=== PATIENT | female | born 1935 | race Caucasian/White ===

== ENCOUNTER 2024-02-25 12:37 | Outpatient (CLI) | payer MEDICARE, BC, SELFPAY ==
--- OUTSIDE RECORDS SUMMARY | 2024-03-02 06:45 | XMS_ITS | Clinical Summary ---
Author Organization [facility] Address [place], [place] [address] Care Team Providers Care Curtain Inspector Name Role Phone Tabitha Nash Primary Care [...] syndrome 10/03/2008 5 Overview (10/03/2008): On premarin Encounters Date Type Department Care Team Description 02/25/2024 Orders Only [facility] Scanner 1 scan: (1-Ord) [facility], XR HIP LT, 02/25/2024 from Last 3 Months Immunizations Name Administration Dates Next Due AMB Influenza, IIV3 (Age >=3 years)(Flu Clinic Only) 02/25/2013 COVID-19 VACCINE SPIKEVAX (M ODERNA 50MCG/0.5ML) 12YO+ PFS 02/24/2023 COVID-19 vaccine (Pfizer-Bio NTech 30mcg/0.3mL) 12YO+ BIVALENT PF, MDV 02/08/2022 COVID-19 vaccine (Pfizer-Bio NTech 30mcg/0.3mL) PF, MDV 02/28/2021,06/24/2020,06/03/2020 Influenza, High-dose [...] st Contact Info) Description 03/09/2024 8:30 AM COMMERCIAL ART INSTRUCTOR Office Visit [facility] [[email or web address] [address] [place] [address] Tabitha Nash PA [address] [place] [address] Health Maintenance Due Date Last Done Comments [...] Procedure Name Priority Date/Time Associated Diagnosis Comments SCAN-RADIOLOGY REPORT 02/25/2024 12:00 AM CDT XR DXA BONE DENSITY 2 SITES AXIAL Routine 05/08/2012 10:37 AM COMMERCIAL ART INSTRUCTOR Osteopenia from Last 3 Months or Most Recently Relevant to Health Maintenance Results * SCAN-RADIOLOGY REPORT (02/25/2024 12:00 AM CDT) Anatomical Region Laterality Modality Other Scanner OTHER * XR DEXA BONE DENSITY 2 SITES (05/08/2012 10:37 AM COMMERCIAL ART INSTRUCTOR) Anatomical Region Laterality Modality Spine, HIPS, HIPL, HIPR Other Narrative 05/12/2012 12:15 PM COMMERCIAL ART INSTRUCTOR Please see scanned document for results of this study. Procedure Note Tamra Alexander - 05/12/2012 Please see scanned document for results of this study. Cyndy Solitario DEXA from Last 3 Months or Most Recently Relevant to Health Maintenance Advance Directives Documents on File Type Date Recorded Patient Oil Field Technician Expl anation Healthcare Directive 09/08/2017 1:50 PM HE ALTHCARE DIRECTIVE, [facility], 08/08/17 Care Teams Curtain Inspector Relationship Specialty Start Date End Date Tabitha Nash [place] [address] [place] [address] PCP - General Physician Director Of Social Media Marketing 05/26/17
== END 2024-02-25 12:38 | disposition home or self-care (01) ==
LOC: AMB 03-02 06:43
PROVIDERS: PCP Physician Assistant Medical; Visit Provider Emergency Medicine Emergency Medical Services
DX: S59.902A Unspecified injury of left elbow, initial encounter (principal); W10.1XXA Fall (on)(from) sidewalk curb, initial encounter; Y92.89 Other specified places as the place of occurrence of the external cause
CPT/HCPCS: A0998

== ENCOUNTER 2024-02-25 13:08 | Emergency (ER) | payer MEDICARE, BC, SELFPAY ==
--- NOTE | 2024-02-25 13:14 | ED_ITS ---
HPI - General Adult General Date Seen: 02/25/24 Chief complaint: Fall/Minor Trauma Stated complaint: fall/left arm pain Time Seen by Provider: 02/25/24 13:14 History of Present Illness HPI narrative: 88 yo F with h/o HTN on Chlorthalidone, hyperlipidemia, history of lumbar stenosis and spondylolisthesis, cystocele, skin cancer, presenting to the ER today for evaluation of left elbow and left hip pain. She was also want with her family today. In the restaurant over the small 6 in step between rooms. 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 She landed on her left side. She did not hit her head or injure her neck. She is not anticoagulated. She landed on her left elbow and left hip. She has significant pain in her left elbow over the olecranon and the medial epicondyle. She actually had scraped her left elbow several days ago in the garden so has a Band-Aid there. She has new abrasions on the dorsum of her elbow from the fall today. She is able to flex and extend her elbow and has normal pronation and supination of her forearm. No numbness or tingling in her hand her arm. No shoulder pain. She also has left hip pain but has been able to bear weight. No numbness or tingling in her left leg. No low back pain. Related Data Home Medications ?Medication ?Instructions ?Recorded ?Confirmed chlorthalidone 25 mg tablet 12.5 mg PO Q OTHER DAY 11/19/21 07/28/23 gabapentin 100 mg capsule mg PO .Bedtime 11/19/21 07/28/23 pravastatin 20 mg tablet mg PO .Bedtime 11/19/21 07/28/23 hydroxyzine HCl 25 mg tablet 25 mg PO 02/18/22 07/28/23 Previous Rx's ?Medication ?Instructions ?Recorded estradiol 0.01% (0.1 mg/gram) 0.5 g vaginal 2XW #42.5 grams 11/19/21 vaginal cream (Estrace) azithromycin 250 mg tablet See Rx Instructions PO .COMPLEX #6 07/28/23 tabs Allergies Allergy/AdvReac Type Severity Reaction Status Date / Time Sulfa drugs Allergy Intermediate GI Issues Uncoded 07/28/23 13:39 [facility] Medical History (Updated 02/25/24 @ 15:19 by Vinny Zarco MD) Cystocele Surgical History (Updated 11/19/21 @ 18:45 by Aby Torres MD) S/P AMBREEN-BSO ?Z90.710 - Acquired absence of both cervix and uterus (ICD-10) ?Z90.722 - Acquired absence of ovaries, bilateral (ICD-10) ?Z90.79 - Acquired absence of other genital organ(s) (ICD-10) Social History (Updated 11/19/21 @ 18:45 by Aby Torres MD) Narrative: She was 04/2021. She wasn't able to take care of her health very much during that time. She was for 60 years when her . She has 3 children. Health care directive on file Health Care Directive completed on 08/08/17. Reviewed for scanning to medical record on 06/17/19 Smoking Status: Never smoker Non-prescribed substance use: denies use Exam Narrative: Exam Narrative: Constitutional: Appears well-developed and well-nourished. Alert. Conversant. Non toxic. She is cold so I got her a blanket. She feels much better with the blanket on. HENT: Head: Atraumatic. No depressed skull fracture, Raccoon Eyes, Pulido's sign, or hemotympanum. Face normal. TMs normal Nose: Nose normal. Mouth/Throat: Oral mucosa is clear and moist. no trismus. Dentures are in place. No signs of oral injury. Eyes: Conjunctivae normal. EOM normal. Pupils equal, round, and reactive to light. No scleral icterus. Neck: Normal range of motion. Neck supple. No tracheal deviation present. Cardiovascular: Normal rate, regular rhythm. No gallop. No friction rub. No murmur heard. Symmetric radial artery pulses Pulmonary/Chest: Effort normal. No stridor. No respiratory distress. No wheezes. No rales. No rhonchi . No tenderness. Musculoskeletal: No C or T or L-spine tenderness. RUE: Normal range of motion. No tenderness. No deformity LUE: Normal range of motion in her shoulder, elbow, forearm, wrist. Clavicle, shoulder, humeral shaft, bicep, tricep are nontender. She is tender over the olecranon and medial epicondyle of the elbow. There is a superficial ecchymosis/superficial abrasion directly over the olecranon on. No bony crepitus. There is a small 1 cm skin tear over the skin of the medial epicondyle. She has a healing abrasion on her lateral elbow (which she scraped in the garden several days ago). Forearm, wrist, hand fingers are nontender. Intact radial, median, ulnar, axillary nerve sensory and motor function. No deformity RLE: Normal range of motion. No edema. No tenderness. No deformity Pelvis is stable. LLE: She is able to bear weight. Normal range of motion her hip, knee, ankle. No deformity or rotation or foreshortening. She is mildly tender over the left hip. No bruising. Neurological: Alert and oriented to person, place, and time. Normal strength. CN II-VII intact. No sensory deficit. GCS eye subscore is 4. GCS verbal subscore is 5. GCS motor subscore is 6. Normal coordination Skin: Skin is warm and dry. No rash noted. No pallor. Normal capillary refill. Psychiatric: Normal mood. Normal affect. Const: Vital Signs, click to edit/add: Vital Signs - 24 hr 02/25/24 13:15 02/25/24 14:10 02/25/24 14:11 Temperature 97.5 F L Pulse Rate 73 68 Pulse Rate [Left P ulse Oximeter] 68 Respiratory Rate 18 Blood Pressure 145/66 H Blood Pressure [Ri ght Upper Arm] 168/78 H Pulse Oximetry 98 96 97 Oxygen Delivery Me thod Room Air Course Vital Signs Vital signs: Initial Vital Signs Temperature 97.5 F L 02/25/24 13:15 Temperature Source Temporal Artery Scan 02/25/24 13:15 Pulse Rate 68 02/25/24 13:15 Pulse Rhythm Regular 02/25/24 13:15 Respiratory Rate 18 02/25/24 13:15 Blood Pressure 168/78 H 02/25/24 13:15 Blood Pressure Mean 108 H 02/25/24 13:15 Blood Pressure Position Sitting 02/25/24 13:15 Pulse Oximetry 98 02/25/24 13:15 Oxygen Delivery Method Room Air 02/25/24 13:15 Vital Signs Temperature 97.5 F L 02/25/24 13:15 Pulse Rate 68 02/25/24 13:15 Respiratory Rate 18 02/25/24 13:15 Blood Pressure 168/78 H 02/25/24 13:15 Pulse Oximetry 98 02/25/24 13:15 Oxygen Delivery Method Room Air 02/25/24 13:15 Temperature 97.5 F L 02/25/24 13:15 Pulse Rate 68 02/25/24 14:11 Respiratory Rate 18 02/25/24 13:15 Blood Pressure 145/66 H 02/25/24 14:10 Pulse Oximetry 97 02/25/24 14:11 Oxygen Delivery Method Room Air 02/25/24 13:15 Medications Administered Medications: Discontinued Medications Generic Name Dose Route Start Last Admin Trade Name Lucienq PRN Reason Stop Dose Admin Acetaminophen 1,000 mg 02/25/24 13:35 02/25/24 13:43 Acetaminophen 500 Mg Tablet PO 02/25/24 13:36 1,000 mg ONCE ONE Administration Diphtheria/Tetanus/Acell Pertussis 0.5 ml 02/25/24 14:14 02/25/24 14:36 Tetanus/Diphth/Pertussis 0.5 Ml Syringe IM 02/25/24 14:15 0.5 ml .ONCE ONE Administration Medical Decision Making MDM Narrative Medical decision making narrative: Very pleasant 88-year-old female presenting to the ER today by private car for evaluation of left elbow pain and left hip pain after she had a accidental ground level fall today. She was out in a restaurant and she missed a step and fell. She did not hit her head and does not have any headache or loss of consciousness. She is not anticoagulated. She is not having any neck pain or signs or symptoms of cervical spine injury. She is not having any sign of torso injury or internal bleeding. Her only complaints are left elbow and left hip pain. In terms of her left elbow clinical exam revealed superficial abrasion and skin tear. She has good range of motion and is neurovascularly intact. X-ray showno acute fracture Left hip: She has tenderness there. No obvious deformity. She is able to bear weight. X-ray of her left hip and pelvis shows no fracture. Wound care for her abrasions performed by nurses here in the ER. These abrasion should heal with topical antibiotics and dressings. No indication for prophylactic oral antibiotics at this time. Tetanus is updated today. Discussed imaging findings with the patient and her family and they are both very pleased nothing is broken. She will manage her pains as if they are bruises. Discussed the potential need for to follow up if any worsening pain with possible MRI of her hip or elbow or CT scan of her pelvis if needed. She will use Tylenol and ice packs if needed for pain. Imaging Data XR left elbow: Attestation: I have reviewed the pertinent imaging results. My impression: No acute fracture or dislocation Radiologist's impression: FINDINGS: No acute fracture or dislocation. No additional osseous abnormality. Soft tissues as imaged are unremarkable. IMPRESSION: No acute osseous abnormality. XR left hip and pelvis: Attestation: I have reviewed the pertinent imaging results. My impression: No acute fracture Radiologist's impression: IMPRESSION: No acute osseous abnormality. Discharge Plan Discharge Clinical Impression: Contusion of elbow, left, Contusion of hip, left Patient Disposition: Home, Self-Care Condition: Stable Instructions: Hip Contusion (ED) Additional Instructions: As we discussed, please try to treat her pain with ice packs 20 minutes every 3- 4 hours if needed and Tylenol as needed. You can also take ibuprofen if needed for aches. Monitor carefully and if you have worsening or severe pain please come back to the ER right away for re-evaluation (if pain gets worse you may need an MRI for further evaluation). It will probably take several days for all the bruising and contusion to heal. Remember, you can come back to the ER anytime if having problems Prescriptions: No Action chlorthalidone 25 mg tablet 12.5 mg PO Q OTHER DAY gabapentin 100 mg capsule PO .Bedtime pravastatin 20 mg tablet PO .Bedtime estradiol [Estrace] 0.01 % (0.1 mg/gram) cream 0.5 g vaginal 2XW Qty: 42.5 3RF Rx Instructions: Use nightly for 2 weeks, then twice weekly. May apply with finger. hydroxyzine HCl 25 mg tablet 25 mg PO Patient Comments: TAKE 0.5 TABLET (12.5 MG) BY MOUTH AT BEDTIME IF NEEDED FOR ANXIETY (SLEEP). (SPLIT TABLETS) azithromycin 250 mg tablet See Rx Instructions PO .COMPLEX Qty: 6 0RF Rx Instructions: For 250 mg dose pack: take 500 mg today (day 1), then 250 mg for 4 days (days 2-5) PO Follow Up/Referrals: Tabitha Nash PA-C [Primary Care Provider] - Stand Alone [facility] Inst[facility]
[2024-02-25 13:15] VITALS: BP 168/78; PULSE 68; RESP 18; TEMP 36.4; O2SAT 98; BMI 21.5
--- NOTE | 2024-02-25 13:35 | CRLHL7_ITS ---
For Patients: As a result of the Cures Act, medical imaging exams and procedure reports are released immediately into your electronic medical record. You may view this report before your referring provider. If you have questions, please contact your health care provider. INDICATION: Fall. Elbow pain. TECHNIQUE: Left elbow three views. COMPARISON: None. FINDINGS: No acute fracture or dislocation. No additional osseous abnormality. Soft tissues as imaged are unremarkable. IMPRESSION: No acute osseous abnormality. Dictated by Benjamin Wyman MD @ 02/25/2024 2:17:37 PM (Electronically Signed)
--- NOTE | 2024-02-25 13:35 | CRLHL7_ITS ---
For Patients: As a result of the Cures Act, medical imaging exams and procedure reports are released immediately into your electronic medical record. You may view this report before your referring provider. If you have questions, please contact your health care provider. INDICATION: Fall. Left hip pain. TECHNIQUE: Pelvis one view. Left hip two views. COMPARISON: None. FINDINGS: Bone demineralization. Degenerative changes of the bilateral hips and visualized lumbar spine. No acute fracture or dislocation. Vascular calcifications. IMPRESSION: No acute osseous abnormality. Dictated by Benjamin Wyman MD @ 02/25/2024 2:20:42 PM (Electronically Signed)
[2024-02-25] MEDS: ACETAMINOPHEN 500 MG TABLET 1000 MG PO (13:43)
--- OUTSIDE RECORDS SUMMARY | 2024-02-25 13:48 | XMS_ITS | Clinical Summary ---
Author Organization [facility] Address [place], [place] [address] Care Team Providers Care Director Of Income Tax Name Role Phone Tabitha Nash Primary Care Provider Allergies Active Allergy Reactions Criticality Noted Date Comments Sulfamethoxazole-Trimethoprim Diarrhea 2008 Sulfa (Sulfonamide Antibiotics) Diarrhea 01/26 Medications Medication Sig Dispensed Refills Start Date End Date Status estradioL (ESTRACE) 0.01% (0.1 mg/g) vaginal cream INSERT 0.5GM VAGINALLY ONCE NIGHTLY FOR 2 WEEKS THE 2 TIMES PER WEEK. MAY APPLY WITH FINGER. 11/19/2021 Active chlorthalidone (HYGROTON) 25 mg tabletIndications:Hyp ertension, unspecified type Take 0.5 Tablets (12.5 mg) by mouth once daily. 45 Tablet 3 02/24/2023 Active gabapentin (NEURONTIN) 100 mg capsuleIndications:Za mbar radicular pain Take 1 Capsule (100 mg) by mouth at bedtime. 90 Capsule 3 02/24/2023 Active hydrOXYzine HCL (ATARAX) 25 mg tabletIndications:Anx iety Take 0.5 Tablets (12.5 mg) by mouth at bedtime if needed for Anxiety (sleep). 45 Tablet 3 02/24/2023 Active pravastatin (PRAVACHOL) 20 mg tabletIndications:Mix ed hyperlipidemia Take 1 Tablet (20 mg) by mouth at bedtime. 90 Tablet 3 02/24/2023 Active Active Problems Problem Noted Date Diagnosed Date Squamous cell carcinoma of lower leg, left 10/03 Overview (10/04/2022): Dr. Derek King, [facility] Phys[facility] Hyperlipidemia, unspecified 02/01/2016 Lumbar neuroforaminal stenosis 02/10/2013 Lumbar radicular pain 02/10/2013 Spondylolisthesis 11/20/2012 HTN (hypertension) 05/18/2012 Cystocele, midline 04/13/2012 Sun-damaged skin 03/26/2011 Actinic keratoses 03/20/2011 Other malignant neoplasm of skin of upper limb, including shoulder 12/19/2010 Osteopenia 10/03/2008 Overview (05/18/2012): Osteopenia 2003, t score spine -1.7, hips -1.1,-1.2 Stable 2012. Recheck 7-10 years. Or if some other significant change. Unspecified glaucoma Resolved Problems Problem Noted Date Diagnosed Date Resolved Date Menopause syndrome 10/03/2008 5 Overview (10/03/2008): On premarin Immunizations Name Administration Dates Next Due AMB Influenza, IIV3 (Age >=3 years)(Flu Clinic Only) 02/25/2013 COVID-19 VACCINE SPIKEVAX (M ODERNA 50MCG/0.5ML) 12YO+ PFS 02/24/2023 COVID-19 vaccine ([employer] NTech 30mcg/0.3mL) 12YO+ BIVALENT PF, MDV 02/08/2022 COVID-19 vaccine ([employer]-Bio NTech 30mcg/0.3mL) PF, MDV 02/28/2021,06/24/2020,06/03/2020 Influenza, High-dose Inactivated 02/01/2016,12/27,01/27/2012 Influenza, IIV3 (Age 6-35 mos) 01/26/2011 Influenza, IIV3 (Age >=3 years) 02/26/20 13,01/26/2011,02/16/2007,2003 Influenza, IIV4 01/18/2015 Influenza, Inactivated AIIV4 (Age 65+ Years) Preserv Free 02/24/2023,02/08/2022,02/21/2021,2019 Influenza, Inactivated IIV3 (Age 65+ Years) Preserv Free 01/06/2019,02/04/2018,04/01/2017 Pneumococcal Poly,23-Valent (Pneumovax) 03/20/2004 Pneumococcal conj 13-Valent (Prevnar 13) 03/28/2015 Td (Age >=7 Years) 03/03/2006 Tdap 04/13/2012,03/03/2006 Zoster (Zostavax-ZVL, live) 03/04/2012 Family History Medical History Relation Name Comments Lung cancer Brother Cancer Father bone cancer Other Mother glaucoma/catara cts Stroke Mother Cancer-breast No Family History Cancer-colon No Family History Relation Name Status Comments Brother Father bone cancer Mother stroke Social History Tobacco Use Types Packs/Day Years Used Date Smoking Tobacco: Never Smokeless Tobacco: Never Tobacco Cessation:Counseling Given: Yes Alcohol Use Standard Drinks/Week Comments Not Currently 0 (1 standard drink = 0.6 oz pur e alcohol) rare PHQ-2 Answer Date Recorded PHQ-2 TOTAL SCORE 0 02/24/2023 Social Connections Answer Date Recorded Do you often feel lonely or isolated from those around you? 0 08/06/2023 Financial Resource Strain Answer Date R ecorded Difficulty of Paying Living Expenses 3 08/06/2023 Difficulty of Paying Living Expenses Not on file 08/06/2023 Food Insecurity Answer Date Recorded Do you worry your food will run out before you are able to buy more? 1 08/06/2023 Transportation Needs Answer Date Record ed Does lack of transportation keep you from medica l appointments? 1 08/06/2023 Does lack of transportation keep you from work, meetings or getting things that you need? 1 08/06/2023 Housing Stability Answer Date Recorded What is your housing situation today? 1 08/06/2023 Sex and Gender Information Value Date Recorded Sex Assigned at Not on file Gender Identity Not on file Sexual Orientation Not on file Obstetrics History Para Term AB IAB SAB Ectopic Multiple Livin g Live Births 3 3 3 Date Outcome GA Total Labor Labor/2nd/3rd Weight Sex Type Anes PTL Blanca A1 A5 Name Clin Para Para Para Last Filed Vital Signs Vital Sign Reading Time Taken Comments Blood Pressure 137/64 08/06/2023 3:25 PM CDT Pulse 66 08/06/2023 2:49 PM CDT Temperature 36.7 ??C (98 ??F) 08/06/2023 2:49 PM CDT Respiratory Rate 16 09/30/2022 10:36 AM CDT Oxygen Saturation 99% 08/06/2023 2:49 PM CDT Inhaled Oxygen Concentration - - Weight 50.8 kg (112 lb) 08/06/2023 2:49 PM CDT Height 152.4 cm (5') 02/24/2023 8:51 AM CDT Body Mass Index 21.87 02/24/2023 8:51 AM CDT Plan of Treatment Upcoming Encounters Date Type Department Care Team (Late st Contact Info) Description 03/09/2024 8:30 AM UTILITY INSPECTOR Office Visit [facility] [address] [place] [address] Tabitha Nash PA [address] [place] [address] Health Maintenance Due Date Last Done Comments RSV vaccine for adults or (1 - 1-dose 75+ series) 2012 Zoster (shingles) series for age 50+ (2 of 3) 04/29/2012 03/04/2012 Tetanus booster 04/13/2022 04/13/2012, 09/2005, 03/03/2006 COVID-19 vaccine series ( season) 2023 02/24/2023, 02/08/2022, 08/17/2021, Additional history exists Influenza for age 65+ 12/28/2023 02/24/2023 , 02/08/2022, 02/21/2021, Additional history exists BMI (ht and wt on same day) for age 18+ 02/25/2024 02/24/2023, 09/30/2022, 02/08/2022, Additional history exists Medicare Wellness for age 65+ 02/25/2024, 02/08/2022, 02/04/2018, Additional history exists Depression screening for age 12+ 02/26/2024 02/25/2023, 02/24/2023, 02/08/2022, Additional history exists Tdap Completed 04/13/2012, 03/03/2006 DEXA/DXA scan for age 65+ Completed 2012, 03/20/2011 (Declined) Pneumococcal series for age 65+ Completed 5, 03/20/2004 Procedures Procedure Name Priority Date/Time Associated Diagnosis Comments XR DXA BONE DENSITY 2 SITES AXIAL Routine 05/08/2012 10:37 AM UTILITY INSPECTOR Osteopenia from Last 3 Months or Most Recently Relevant to Health Maintenance Results * XR DEXA BONE DENSITY 2 SITES (05/08/2012 10:37 AM UTILITY INSPECTOR) Anatomical Region Laterality Modality Spine, HIPS, HIPL, HIPR Other Narrative 05/12/2012 12:15 PM UTILITY INSPECTOR Please see scanned document for results of this study. Procedure Note Tamra Alexander - 05/12/2012 Please see scanned document for results of this study. Cyndy Solitario DEXA from Last 3 Months or Most Recently Relevant to Health Maintenance Advance Directives Documents on File Type Date Recorded Patient Photography Spotter Expl anation Healthcare Directive 09/08/2017 1:50 PM HE ALTHCARE DIRECTIVE, [facility], 08/08/17 Care Teams Director Of Income Tax Relationship Specialty Start Date End Date [place] [address] PCP - General Physician Chop Saw Operator 05/26/17
[2024-02-25 14:10] VITALS: BP 145/66; PULSE 73; O2SAT 96
[2024-02-25 14:11] VITALS: PULSE 68; O2SAT 97
[2024-02-25] MEDS: TETANUS/DIPHTH/PERTUSSIS 0.5 ML SYRINGE IM (14:36)
== END 2024-02-25 15:30 | disposition home or self-care (01) ==
PROVIDERS: Emergency Provider Emergency Medicine; PCP Physician Assistant Medical
DX: S50.02XA Contusion of left elbow, initial encounter (principal); S70.02XA Contusion of left hip, initial encounter
CPT/HCPCS: 73070; 73502; 90471; 90715; 99283; 99284; A9270

== ENCOUNTER 2024-04-11 16:41 | Outpatient (CLI) | payer MEDICARE, BC, SELFPAY | END 2024-04-11 16:42 | disposition home or self-care (01) | LOC: AMB 04-12 17:20 | PROVIDERS: PCP Physician Assistant Medical; Visit Provider Family Medicine | DX: S09.93XA Unspecified injury of face, initial encounter (principal); W01.0XXA Fall on same level from slipping, tripping and stumbling without subsequent striking against object, initial encounter; Y92.009 Unspecified place in unspecified non-institutional (private) residence as the place of occurrence of the external cause | CPT/HCPCS: A0425; A0429 ==

== ENCOUNTER 2024-04-11 17:05 | Emergency (ER) | payer MEDICARE, BC, SELFPAY ==
[2024-04-11] VITALS (7 sets, daily range): BP systolic 155–176; BP diastolic 79–89; PULSE 75–79; RESP 16; TEMP 36.6; O2SAT 94–100; BMI 21.5
--- NOTE | 2024-04-11 17:18 | ED_ITS ---
HPI - General Adult General Time Seen by Provider: 17:18 Date Seen: 04/11/24 Chief complaint: Fall/Minor Trauma Stated complaint: Fall related Trauma Time Seen by Provider: 04/11/24 17:18 Source: patient Mode of arrival: ambulatory Limitations: no limitations History of Present Illness HPI narrative: Rosy is a very pleasant 88-year-old female with history of hypertension who comes to the emergency room after having taken a fall outside. Patient notes that she wanted to get out today and agreed to take her neighbor's dog for a walk. She notes the neighbor's dog seems somewhat excitable and she found herself falling and her face hitting cement. She did not lose consciousness. Clearly she is upset about what happened. She denies neck pain chest pain diffi culty breathing abdominal pain nausea or vomiting. She has very bloody on her face, has abrasions on her left elbow and her knees. Related Data Home Medications ?Medication ?Instructions ?Recorded ?Confirmed chlorthalidone 25 mg tablet 12.5 mg PO Q OTHER DAY 11/19/21 04/11/24 gabapentin 100 mg capsule 100 mg PO .Bedtime 11/19/21 04/11/24 pravastatin 20 mg tablet 20 mg PO .Bedtime 11/19/21 04/11/24 hydroxyzine HCl 25 mg tablet 12.5 mg PO DAILY 02/18/22 04/11/24 Previous Rx's ?Medication ?Instructions ?Recorded estradiol 0.01% (0.1 mg/gram) 0.5 g vaginal 2XW #42.5 grams 11/19/21 vaginal cream (Estrace) Allergies Allergy/AdvReac Type Severity Reaction Status Date / Time Sulfa drugs Allergy Intermediate GI Issues Uncoded 07/28/23 13:39 Review of Systems Status of ROS: Reports: 6 or more systems reviewed and unremarkable except as noted in History and below [facility] Medical History Cystocele Surgical History S/P AMBREEN-BSO ?Z90.710 - Acquired absence of both cervix and uterus (ICD-10) ?Z90.722 - Acquired absence of ovaries, bilateral (ICD-10) ?Z90.79 - Acquired absence of other genital organ(s) (ICD-10) Social History Narrative: She was 04/2021. She wasn't able to take care of her health very much during that time. She was for 60 years when her . She has 3 children. Health care directive on file Health Care Directive completed on 08/08/17. Reviewed for scanning to medical record on 06/17/19 Smoking Status: Never smoker How often do you have a drink containing alcohol: never AUDIT-C Alcohol total score: 0 Non-prescribed substance use: denies use Exam Narrative: Exam Narrative: Rosy is alert and oriented. She is mentating normally with a GCS of 15. EOM is full. 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 She has abrasion with edema on her left forehead measuring approximately a 50 cent piece. She has erythema and edema coming around the left periorbital area onto the cheek bone with there is a superficial abrasion approximately dime-sized. There is superficial abrasion on the bridge of her nose. Her nose is quite edematous. There is dried blood at the nares. No active bleeding at this time. No evidence of a septal hematoma. Dentition appears to be intact. No movement of the maxilla. Her lips show some bleeding but no open laceration. Neck is supple. No midline cervical tenderness. Patient demonstrates full movement with no discomfort. Left elbow shows a skin tear approximately dime-sized. She is able to fully move her elbow without difficulty. Superficial abrasions on both of her knees noted. Bruising of her right 3rd proximal phalanx with full movement of her hand. Palpation down her lumbar and thoracic spine without pain and there is no abdominal pain with palpation. Heart with regular rate and rhythm and lungs are clear to auscultation bilaterally. Const: Vital Signs, click to edit/add: Vital Signs - 24 hr 04/11/24 17:10 04/11/24 18:36 04/11/24 18:37 Temperature 97.9 F Pulse Rate 76 77 Pulse Rate [Pulse Oximeter] 78 Respiratory Rate 16 Blood Pressure 164/84 H Blood Pressure [Ri ght Upper Arm] 168/79 H Pulse Oximetry 100 95 95 Oxygen Delivery Me thod Room Air 04/11/24 18:45 04/11/24 19:00 04/11/24 19:02 Temperature Pulse Rate 77 75 79 Pulse Rate [Pulse Oximeter] Respiratory Rate Blood Pressure 176/89 H Blood Pressure [Ri ght Upper Arm] Pulse Oximetry 94 96 95 Oxygen Delivery Me thod 04/11/24 19:08 Temperature Pulse Rate 77 Pulse Rate [Pulse Oximeter] Respiratory Rate 16 Blood Pressure 155/79 H Blood Pressure [Ri ght Upper Arm] Pulse Oximetry 95 Oxygen Delivery Me thod Documenting provider has reviewed patient's vital signs: yes Course Course ED Course: Although patient not currently on blood thinner she is 88 years old and did suffer a fall where her face hit concrete. Would recommend head CT as well as facial CT is I strongly suspect nasal fracture. Will get these wounds cleaned up and make sure that there are no lacerations that need to be addressed. Let has been ordered to have placed on abrasions for anesthesia with cleaning. Reevaluation(s) Reevaluation #1: Patient much improved after blood has been removed. I do not see any active lacerations that need to have sutures. Vital Signs Vital signs: Initial Vital Signs Temperature 97.9 F 04/11/24 17:10 Temperature Source Temporal Artery Scan 04/11/24 17:10 Pulse Rate 78 04/11/24 17:10 Respiratory Rate 16 04/11/24 17:10 Blood Pressure 168/79 H 04/11/24 17:10 Blood Pressure Mean 108 H 04/11/24 17:10 Blood Pressure Position Sitting 04/11/24 17:10 Pulse Oximetry 100 04/11/24 17:10 Oxygen Delivery Method Room Air 04/11/24 17:10 Vital Signs Temperature 97.9 F 04/11/24 17:10 Pulse Rate 78 04/11/24 17:10 Respiratory Rate 16 04/11/24 17:10 Blood Pressure 168/79 H 04/11/24 17:10 Pulse Oximetry 100 04/11/24 17:10 Oxygen Delivery Method Room Air 04/11/24 17:10 Temperature 97.9 F 04/11/24 17:10 Pulse Rate 77 04/11/24 19:08 Respiratory Rate 16 04/11/24 19:08 Blood Pressure 155/79 H 04/11/24 19:08 Pulse Oximetry 95 04/11/24 19:08 Oxygen Delivery Method Room Air 04/11/24 17:10 Medications Administered Medications: Discontinued Medications Generic Name Dose Route Start Last Admin Trade Name Asaf PRN Reason Stop Dose Admin Lidocaine/Epinephrine/Tetracaine 3 ml 04/11/24 17:29 04/11/24 17:36 Lidocaine/Epinep/Tetracaine 3 Ml Gel..Ml. TOPICAL 04/11/24 17:30 3 ml ONCE ONE Administration Medical Decision Making MDM Narrative Medical decision making narrative: 1. Fall-no prodromal symptoms. This was simply from overactive dog. Fortunately no evidence of fractures on head CT, no evidence of intracranial bleed. Patient mentally intact. 2. Soft tissue injury face, elbow, knees-all wounds were cleaned up here in the emergency room. On the face would like patient to apply Vaseline twice daily while healing. Fortunately no evidence of nasal fracture on CT per radiological read. No evidence of septal hematoma. Recommend follow-up as needed for worsening symptoms. Discussed signs and symptoms of infection. 3. Disposition-home at this time. Rosy will contact her neighbor and let them know what happened so that they will be available if she needs to call him overnight. Return to the emergency room as needed. Medical Records Medical records reviewed: Yes I reviewed the patient's medical records Imaging Data CT scan - head: Attestation: I have reviewed the pertinent imaging results. My impression: I do not note any acute fractures or intracranial bleed. Radiologist's impression: The ventricles, sulci and gyri are of normal size, shape and contour. Midline structures are centrally located. No convincing evidence of intra- or extra-axial fluid collections. IMPRESSION: 1. No radiographic evidence of acute intracranial abnormalities. Facial CT: Attestation: I have reviewed the pertinent imaging results. Radiologist's impression: The visualized paranasal sinuses are clear. The ostiomeatal complexes are patent bilaterally. The visualized intraorbital contents appear within normal limits. The visualized osseous structures of the face appear intact. Impression: 1. No radiographic evidence of acute osseous injury. Discharge Plan Discharge Clinical Impression: Fall, Soft tissue injury of face, Abrasion Patient Disposition: Home, Self-Care Condition: Improved Additional Instructions: Apply thin layer of Vaseline to areas of abrasion on the face twice daily while healing. Seek medical attention if you are feeling worse, have infection, have fever and as needed. Tylenol as needed for discomfort. Prescriptions: No Action chlorthalidone 25 mg tablet 12.5 mg PO Q OTHER DAY gabapentin 100 mg capsule 100 mg PO .Bedtime pravastatin 20 mg tablet 20 mg PO .Bedtime estradiol [Estrace] 0.01 % (0.1 mg/gram) cream 0.5 g vaginal 2XW Qty: 42.5 3RF Rx Instructions: Use nightly for 2 weeks, then twice weekly. May apply with finger. hydroxyzine HCl 25 mg tablet 12.5 mg PO DAILY Patient Comments: TAKE 0.5 TABLET (12.5 MG) BY MOUTH AT BEDTIME IF NEEDED FOR ANXIETY (SLEEP). (SPLIT TABLETS) Follow Up/Referrals: Tabitha Nash PA-C [Primary Care Provider] - Stand Alone Forms: My[facility] Info Instructions
--- NOTE | 2024-04-11 17:29 | CRLHL7_ITS ---
For Patients: As a result of the Century Cures Act, medical imaging exams and procedure reports are released immediately into your electronic medical record. You may view this report before your referring provider. If you have questions, please contact your health care provider. INDICATION: Headache. Trauma. TECHNIQUE: Non-contrast CT of the head is submitted. No comparisons. FINDINGS: The ventricles, sulci and gyri are of normal size, shape and contour. Midline structures are centrally located. No convincing evidence of intra- or extra-axial fluid collections. IMPRESSION: 1. No radiographic evidence of acute intracranial abnormalities. Please note that all CT scans at this facility use dose modulation, iterative reconstruction, and/or weight-based dosing when appropriate to reduce radiation dose to as low as reasonably achievable. Dictated by Bonifacio Hamm MD @ 04/11/2024 6:12:53 PM (Electronically Signed)
--- NOTE | 2024-04-11 17:29 | CRLHL7_ITS ---
For Patients: As a result of the Century Cures Act, medical imaging exams and procedure reports are released immediately into your electronic medical record. You may view this report before your referring provider. If you have questions, please contact your health care provider. Indication: Trauma. Facial pain Technique: Noncontrast axial CT of the facial bones with coronal reformats are provided. No comparisons. Findings: The visualized paranasal sinuses are clear. The ostiomeatal complexes are patent bilaterally. The visualized intraorbital contents appear within normal limits. The visualized osseous structures of the face appear intact. Impression: 1. No radiographic evidence of acute osseous injury. Please note that all CT scans at this facility use dose modulation, iterative reconstruction, and/or weight-based dosing when appropriate to reduce radiation dose to as low as reasonably achievable. Dictated by Bonifacio Hamm MD @ 04/11/2024 6:13:26 PM (Electronically Signed)
[2024-04-11] MEDS: LIDOCAINE/EPINEP/TETRACAINE 3 ML GEL..ML. TOPICAL (17:36)
== END 2024-04-11 19:25 | disposition home or self-care (01) ==
PROVIDERS: Emergency Provider Family Medicine; PCP Physician Assistant Medical
DX: S00.31XA Abrasion of nose, initial encounter (principal); S00.212A Abrasion of left eyelid and periocular area, initial encounter; S80.212A Abrasion, left knee, initial encounter; S80.211A Abrasion, right knee, initial encounter; W19.XXXA Unspecified fall, initial encounter
CPT/HCPCS: 70450; 70486; 99284